=== PATIENT | male | born 1960 | race African-American/Black ===

== ENCOUNTER 2022-06-08 09:58 | Outpatient (CLI) | payer MEDICARE | END 2022-06-08 09:59 | disposition home or self-care (01) | LOC: BICRAD 09:58 | PROVIDERS: ATTEND Family Medicine | DX: M25.561 Pain in right knee (principal) ==

== ENCOUNTER 2023-01-09 13:42 | Emergency (ER) | payer MEDICARE ==
[2023-01-09] MEDS ORDERED: Ketorolac Tromethamine 30 MG/ML VIAL ONE (16:52)
[2023-01-09] MEDS ORDERED: traMADol HCl 50 MG TAB ONE (16:53)
== END 2023-01-09 17:44 | disposition home or self-care (01) ==
LOC: ERS 13:42
DX: S63.502A Unspecified sprain of left wrist, initial encounter (principal); I11.0 Hypertensive heart disease with heart failure; I50.9 Heart failure, unspecified; X50.0XXA Overexertion from strenuous movement or load, initial encounter
CPT/HCPCS: 93005; 96372; J1885